=== PATIENT | male | born 1955 | race Caucasian/White ===

== ENCOUNTER → 2023-07-08 | Emergency (ER) | payer OTHER, MEDICARE ==
[~2023-07-08] MED LIST: HYDROCODONE/APAP 7.5/325 MG TAB ONE
--- NOTE | 2023-07-08 21:19 | RAD REPORT ---
EXAM DESCRIPTION: CT - CTHCSPWOC - 07/08/2023 9:02 pm CLINICAL HISTORY: Trauma, head and neck injury. TRAUMA COMPARISON: No comparisons TECHNIQUE: Axial 5 mm thick images of the head were obtained. Axial 2 mm thick images of the cervical spine were obtained with sagittal and coronal reconstruction images generated and reviewed. All CT scans are performed using dose optimization technique as appropriate and may include automated exposure control or mA/KV adjustment according to patient size. FINDINGS: CT HEAD WITHOUT CONTRAST: No acute hemorrhage, hydrocephalus or extra-axial collection is identified.No areas of brain edema or midline shift. Cerebral atrophy. Trace right maxillary sinus thickening.The calvarium is intact. CT CERVICAL SPINE WITHOUT CONTRAST: No fracture or subluxation.No prevertebral soft tissues swelling is identified. Multilevel degenerati ve changes are present in the spine. Varying degrees of neural foraminal narrowing noted most pronoun sally at the C5-6 level were the narrowing is moderate. IMPRESSION: No acute intracranial or cervical spine findings.
--- NOTE | 2023-07-08 21:52 | ER ---
Nurse's Notes [facility] Name: Anton Ceballos Age: 67 yrs Sex: Male : 1955 Arrival Date: 07/08/2023 Time: 20:10 Bed 17 Private MD: Diagnosis: Puncture wound without foreign body of scalp, initial encounter Presentation: 07/08 20:16 Chief complaint: Patient states: Pt states he fell off a chair and struck the left side tl4 of his head on concrete floor. Pt c/o head pain and dizziness. Pt denies LOC. Pt has matted bloody hair, unable to visualize laceration. Bleeding controlled. No abnormal behaviors reported by . Coronavirus screen: At this time, the client does not indicate any symptoms associated with coronavirus-19. Ebola Screen: No symptoms or risks identified at this time. Complicating Factors: There are no complicating factors for this patient. Initial Sepsis Screen: Does the patient meet any 2 criteria? No. Patient's initial sepsis screen is negative. Does the patient have a suspected source of infection? No. Patient's initial sepsis screen is negative. Risk Assessment: Do you want to hurt yourself or someone else? Patient reports no desire to harm self or others. Onset of symptoms was July 08, 2023 at 20:00. 20:16 Method Of Arrival: Wheelchair tl4 20:16 Acuity: JOAN 3 tl4 Triage Assessment: 20:20 General: Appears distressed, uncomfortable, Behavior is crying. Pain: Complains of pain tl4 in left side of head. EENT: No deficits noted. No signs and/or symptoms were reported regarding the EENT system. Neuro: Reports dizziness, headache. Cardiovascular: No deficits noted. Denies chest pain, diaphoresis, lightheadedness, palpitations. Respiratory: No deficits noted. Denies cough, shortness of breath. GI: No deficits noted. No signs and/or symptoms were reported involving the gastrointestinal system. : No deficits noted. No signs and/or symptoms were reported regarding the genitourinary system. Derm: No deficits noted. No signs and/or symptoms reported regarding the dermatologic system. Injury Description: Laceration sustained to left side of head. Historical: - Allergies: 20:23 No Known Allergies; tl4 - Home Meds: 20:23 tramadol 50 mg Oral tablet [Active]; levocetirizine oral [Active]; Valacyclovir Oral tl4 [Active]; gabapentin 300 mg oral capsule 1 cap 2 times per day [Active]; famotidine 40 mg Oral tablet 1 tab daily [Active]; rosuvastatin 20 mg oral tablet 1 tab daily [Active]; lisinopril-hydrochlorothiazide 20-25 mg oral tablet 1 tab daily [Active]; - PMHx: 20:23 Hypertensive disorder; tl4 - Immunization history:: Adult Immunizations unknown, Last tetanus immunization: up to date 2021. - Social history:: Smoking status: Patient denies any tobacco usage or history of. Screenin:40 [facility] ED Fall Risk Assessment (Adult) History of falling in the last 3 months, vc1 including since admission Yes- single mechanical fall (1 pt) Confusion or Disorientation No (0 pts) Intoxicated or Sedated No (0 pts) Impaired Gait No (0 pts) Mobility Assist Device Used No (0 pt) Altered Elimination No (0 pt) Score/Fall Risk Level 3 or more points = High Risk Oriented to surroundings, Maintained a safe environment, Educated pt \T\ family on fall prevention, incl call for assistance when getting out of bed. Abuse screen: Denies threats or abuse. Nutritional screening: No deficits noted. Tuberculosis screening: No symptoms or risk factors identified. Vital Signs: 20:16 BP 142 / 102; Pulse 75; Resp 16; Temp 97.1(TE); Pulse Ox 97% on R/A; Weight 88.45 kg; tl4 Height 5 ft. 6 in. ; Pain 8/10; 20:16 Body Mass Index 31.47 (88.45 kg, 167.64 cm) tl4 20:16 Pain Scale: Adult tl4 ED Course: 20:16 Patient arrived in ED. tl4 20:16 Mavis Kinney PA-C is PHCP. sb4 20:16 Soto Haddad MD is Attending Physician. sb4 20:20 Triage completed. tl4 20:20 Arm band placed on right wrist. tl4 21:00 Head C Spine MPR Wo Con CT In Process Unspecified. EDMS 22:41 No provider procedures requiring assistance completed. IV discontinued, intact, vc1 bleeding controlled, No redness/swelling at site. Pressure dressing applied. Administered Medications: 21:28 Drug: Hydrocodone-Acetaminophen PO (7.5 mg-325 mg) 1 tabs PO once Route: PO; vc1 Medication: 22:42 VIS not applicable for this client. vc1 Outcome: :52 Discharge ordered by . sb4 :42 Discharged to home via wheelchair, vc1 :42 Condition: good :42 Discharge instructions given to patient, Instructed on discharge instructions, follow up and referral plans. medication usage, Demonstrated understanding of instructions, follow-up care, medications, Prescriptions given X 1, :45 Patient left the ED. vc1 Signatures: Dispatcher [employer] EDMS Italia Adkins RN RN vc1 Mavis Kinney PA-C PABay [email or web address] Harjinder Hansen RN RN tl4
--- NOTE | 2023-07-08 21:52 | EDPHYS ---
Physician Documentation [facility] Name: Anton Ceballos Age: 67 yrs Sex: Male : 1955 Arrival Date: 07/08/2023 Time: 20:10 Bed 17 Private MD: ED Physician Soto Haddad HPI: 07/08 20:43 This 67 yrs old Male presents to ER via Wheelchair with complaints of Laceration. sb4 20:43 The patient has a laceration occurred at home, and there are no complicating factors. sb4 The injury was accidental. The laceration(s) is(are) located on the left side of the back of head. Onset: The symptoms/episode began/occurred just prior to arrival. Associated signs and symptoms: Pertinent positives: dizziness, Pertinent negatives: deformity, heavy bleeding, loss of consciousness. The patient has not experienced similar symptoms in the past. The patient has not recently seen a physician. fell off of a chair reaching for a box, no loc, no blood thinners. Historical: - Allergies: 20:23 No Known Allergies; tl4 - Home Meds: 20:23 tramadol 50 mg Oral tablet [Active]; levocetirizine oral [Active]; Valacyclovir Oral tl4 [Active]; gabapentin 300 mg oral capsule 1 cap 2 times per day [Active]; famotidine 40 mg Oral tablet 1 tab daily [Active]; rosuvastatin 20 mg oral tablet 1 tab daily [Active]; lisinopril-hydrochlorothiazide 20-25 mg oral tablet 1 tab daily [Active]; - PMHx: 20:23 Hypertensive disorder; tl4 - Immunization history:: Adult Immunizations unknown, Last tetanus immunization: up to date 2021. - Social history:: Smoking status: Patient denies any tobacco usage or history of. ROS: 20:43 Constitutional: Negative for fever, chills, and weight loss, sb4 20:43 Skin: Positive for laceration(s), of the left side of the back of head, 20:43 Neuro: Positive for dizziness, headache, 20:43 All other systems are negative, Exam: 21:50 Constitutional: This is a well developed, well nourished patient who is awake, alert, sb4 and in no acute distress. Head/Face: Normocephalic, atraumatic. Eyes: Extra-ocular motions intact. Periorbital areas with no swelling, redness, or edema. ENT: Mucous membranes moist. Cardiovascular: Regular rate and rhythm with a normal S1 and S2. Respiratory: Lungs have equal breath sounds bilaterally, clear to auscultation and percussion. No rales, rhonchi or wheezes noted. No increased work of breathing, no retractions or nasal flaring. Abdomen/GI: Soft, non-tender, no distension. MS/ Extremity: Pulses equal, no cyanosis. Neurovascular intact. Full, normal range of motion. Neuro: Awake and alert, GCS 15, oriented to person, place, time, and situation. Motor strength 5/5 in all extremities. Sensory grossly intact. 21:50 Skin: injury, puncture(s), that are superficial, of the left side of the back of head, Vital Signs: 20:16 BP 142 / 102; Pulse 75; Resp 16; Temp 97.1(TE); Pulse Ox 97% on R/A; Weight 88.45 kg; tl4 Height 5 ft. 6 in. ; Pain 8/10; 20:16 Body Mass Index 31.47 (88.45 kg, 167.64 cm) tl4 20:16 Pain Scale: Adult tl4 MDM: 20:33 Patient medically screened. sb4 21:50 Differential diagnosis: superficial laceration, hematoma, closed head injury. Data sb4 reviewed: vital signs, nurses notes, radiologic studies, and as a result, I will discharge patient. Historians other than the Patient: Spouse/Significant Other: . Counseling: I had a detailed discussion with the patient and/or guardian regarding the historical points, exam findings, and any diagnostic results supporting the discharge/admit diagnosis, radiology results, to return to the emergency department if symptoms worsen or persist or if there are any questions or concerns that arise at home. 07/08 20:42 Order name: Head C Spine MPR Wo Con CT; Complete Time: 21:20 sb4 Administered Medications: 21:28 Drug: Hydrocodone-Acetaminophen PO (7.5 mg-325 mg) 1 tabs PO once Route: PO; vc1 Disposition: 07/09 20:53 Co-signature as Attending Physician, Soto Haddad MD I agree with the assessment sp4 and plan of care. I reviewed the patient's care provided by the Advanced Practice Provider and agree with the diagnosis and treatment plan. Disposition Summary: 07/08/23 21:52 Discharge Ordered Notes: Location: Home sb4 Problem: new sb4 Symptoms: have improved sb4 Condition: Stable sb4 Diagnosis - Puncture wound without foreign body of scalp, initial encounter sb4 Followup: sb4 - With: Emergency Department - When: As needed - Reason: Trouble breathing, Worsening of condition Discharge Instructions: - Discharge Summary Sheet sb4 - Puncture Wound, [id number] sb4 - Facial or Scalp Contusion, [id number] sb4 Forms: - Medication Reconciliation Form sb4 - Thank You Letter sb4 - Prescription Opioid Use sb4 - Patient Portal Instructions sb4 - Leadership Thank You Letter sb4 Prescriptions: - Tramadol 50 mg Oral Tablet - take 1 tablet ORAL route every 8 hours as needed; 12 tablet; Refills: 0, sb4 Product Selection Permitted Signatures: Dispatcher [employer] Italia Alfaro RN RN vc1 Mavis Kinney, ANNITA ARIZA sb4 Soto Haddad MD MD sp4 Harjinder Hansen RN RN tl4
[2023-07-08 22:53] VITALS: BP 142/102; TEMP 97.1; O2SAT 97
== END ==
LOC: ER 20:10
DX: S01.03XA Puncture wound without foreign body of scalp, initial encounter (principal); I10 Essential (primary) hypertension; W07.XXXA Fall from chair, initial encounter
CPT/HCPCS: 70450; 72125; 99283

== ENCOUNTER 2024-01-23 08:46 | Emergency (ER) | payer BC, OTHER, MEDICARE ==
--- NOTE | 2024-01-23 09:24 | ER ---
Nurse's Notes [facility] Name: Anton Ceballos Age: 68 yrs Sex: Male : 1955 Arrival Date: 01/23/2024 Time: 08:46 Bed 3 Private MD: Diagnosis: Dental pain;Periapical abscess Presentation: 01/22 09:09 Chief complaint: Patient states: R jaw tooth pain since Sunday, worse today. No fever. ll1 Coronavirus screen: Client denies travel out of the [place] in the last 14 days. At this time, the client does not indicate any symptoms associated with coronavirus-19. Ebola Screen: Patient denies travel to an Ebola-affected area in the 21 days before illness onset. Initial Sepsis Screen: Does the patient meet any 2 criteria? No. Patient's initial sepsis screen is negative. Does the patient have a suspected source of infection? No. Patient's initial sepsis screen is negative. Risk Assessment: Do you want to hurt yourself or someone else? Patient reports no desire to harm self or others. Onset of symptoms was January 20, 2024. 09:09 Method Of Arrival: Wheelchair ll1 09:09 Acuity: JOAN 3 ll1 Historical: - Allergies: 09:08 No Known Allergies; ll1 - PMHx: 08:58 Hypertensive disorder; dd2 - PSHx: 09:08 Cholecystectomy; ll1 - Immunization history:: Adult Immunizations up to date. - Infectious Disease History:: Denies. - Social history:: Smoking status: unknown. Screenin:35 [facility] ED Fall Risk Assessment (Adult) History of falling in the last 3 months, ph including since admission No falls in past 3 months (0 pts) Confusion or Disorientation No (0 pts) Intoxicated or Sedated No (0 pts) Impaired Gait No (0 pts) Mobility Assist Device Used No (0 pt) Altered Elimination No (0 pt) Score/Fall Risk Level 0 - 2 = Low Risk Oriented to surroundings, Maintained a safe environment, Hourly rounding (assess needs \T\ fall precautionary measures) done. Abuse screen: Denies threats or abuse. Denies injuries from another. Nutritional screening: No deficits noted. Tuberculosis screening: No symptoms or risk factors identified. Assessment: 09:36 General: Appears in no apparent distress. Behavior is calm, cooperative, Reports chills ph for. Pain: Complains of pain in mouth, R upper jaw. Cardiovascular: No deficits noted. Respiratory: Airway is patent Respiratory effort is even, unlabored. EENT: Reports pain in right jaw. Derm: Skin is pink, warm \T\ dry. Vital Signs: 09:09 BP 157 / 102; Pulse 95; Resp 18; Temp 97.9; Pulse Ox 100% on R/A; Weight 77.11 kg; ll1 Height 5 ft. 6 in. ; Pain 10; 09:09 Body Mass Index 27.44 (77.11 kg, 167.64 cm) ll1 09:09 Pain Scale: Adult ll1 ED Course: 08:49 Patient arrived in ED. mg5 08:58 Arm band placed on Patient placed in an exam room, on a stretcher. dd2 09:00 Roxanne Gomes RN is Primary Nurse. ph 09:08 Milagro Benitez MD is Attending Physician. sd2 09:10 Triage completed. ll1 09:36 Patient has correct armband on for positive identification. Bed in low position. Call ph light in reach. Side rails up X 1. Pulse ox on. NIBP on. Door closed. Noise minimized. 09:37 No provider procedures requiring assistance completed. Patient did not have IV access ph during this emergency room visit. Administered Medications: 09:33 Drug: Clindamycin PO 300 mg PO once Route: PO; ph 09:38 Follow up: Response: No adverse reaction; Medication administered at discharge. ph 09:34 Drug: Hydrocodone-Acetaminophen PO (7.5 mg-325 mg) 1 tabs PO once Route: PO; ph 09:38 Follow up: Response: No adverse reaction; Medication administered at discharge. ph Medication: 09:35 VIS not applicable for this client. ph Outcome: 09:24 Discharge ordered by . sd2 09:37 Discharged to home ambulatory, with significant other, ph 09:37 Condition: good 09:37 Discharge instructions given to patient, Instructed on discharge instructions, follow up and referral plans. medication usage, Demonstrated understanding of instructions, follow-up care, medications, Prescriptions given X 1, 09:38 Patient left the ED. ph Signatures: Roxanne Gomes RN RN ph Irnee Javier RN RN 1 Milagro Benitez MD MD sd2 Ilda Carmichael mg5 GLADYS IQBAL, RN RN dd2
--- NOTE | 2024-01-23 09:25 | EDPHYS ---
Physician Documentation [facility] Name: Anton Ceballos Age: 68 yrs Sex: Male : 1955 Arrival Date: 01/23/2024 Time: 08:46 Bed 3 Private MD: ED Physician Milagro Benitez HPI: 01/22 09:19 This 68 yrs old Male presents to ER via Wheelchair with complaints of Toothache. sd2 09:19 The patient presents with pain, swelling. The problem is located in the face. Onset: sd2 The symptoms/episode began/occurred Sunday. Duration: The symptoms are continuous. Modifying factors: The symptoms are alleviated by the symptoms are aggravated by. 68-year-old male presents with chief complaint of right upper molar tooth pain that started this past Sunday. He reports that he has noticed swelling to the area with some possible drainage and he believes that an abscess may have opened up. He has never had any prior issues with the tooth. He denies any fever, vomiting or other systemic symptoms. He reports he had a appointment scheduled with a dentist at [facility] this morning but he called and canceled it and came to the ER instead.. Historical: - Allergies: 09:08 No Known Allergies; ll1 - PMHx: 08:58 Hypertensive disorder; dd2 - PSHx: 09:08 Cholecystectomy; ll1 - Immunization history:: Adult Immunizations up to date. - Infectious Disease History:: Denies. - Social history:: Smoking status: unknown. ROS: 09:19 Constitutional: Negative for fever, chills, and weight loss, Eyes: Negative for injury, sd2 pain, redness, and discharge, ENT: Positive for pain and discharge. Negative for injury. Cardiovascular: Negative for chest pain, palpitations, and edema, Respiratory: Negative for shortness of breath, cough, wheezing. Abdomen/GI: Negative for abdominal pain, nausea, vomiting, diarrhea. Skin: Negative for injury, rash, and discoloration, Exam: 09:19 Constitutional: This is a well developed, well nourished patient who is awake, alert, sd2 and in no acute distress. Head/Face: Normocephalic, atraumatic. Eyes: EOMI, normal conjunctiva bilaterally ENT: Nares patent. No nasal discharge, no septal abnormalities noted. Tympanic membranes are normal and external auditory canals are clear. Oropharynx with no redness, swelling, or masses, exudates, or evidence of obstruction, uvula midline. Mucous membranes moist. Right upper most posterior molar with poor dentition. No visible abscess. Tenderness to palpation of the gumline around this area as well as percussion tenderness of the tooth itself. Vital Signs: 09:09 BP 157 / 102; Pulse 95; Resp 18; Temp 97.9; Pulse Ox 100% on R/A; Weight 77.11 kg; ll1 Height 5 ft. 6 in. ; Pain 10; 09:09 Body Mass Index 27.44 (77.11 kg, 167.64 cm) ll1 09:09 Pain Scale: Adult ll1 MDM: 09:08 Patient medically screened. sd2 09:19 Differential diagnosis: dental caries, gingivitis, dental abscess, pericoronitis, sd2 aphthous ulcers, acute necrotizing ulcerative gingivitis, gingivostomatitis, among others. Data reviewed: vital signs, nurses notes. I considered the following discharge prescriptions or medication management in the emergency department Medications were administered in the Emergency Department. See MAR. Historians other than the Patient: Spouse/Significant Other: Provides further history. Care significantly affected by the following chronic conditions: Hypertension. Counseling: I had a detailed discussion with the patient and/or guardian regarding the historical points, exam findings, and any diagnostic results supporting the discharge/admit diagnosis, the need for outpatient follow up, to return to the emergency department if symptoms worsen or persist or if there are any questions or concerns that arise at home. ED course: [place] given for pain control as well as clindamycin to start antibiotic coverage. We did call the patient's dentist while he was in the ER and they were no longer able to get him in for his morning appointment. They state that he would likely need an initial assessment and then to be on antibiotics for 1 week before they would pull the tooth. They will reschedule the appointment for him pending confirmation of his dental coverage.. Administered Medications: 09:33 Drug: Clindamycin PO 300 mg PO once Route: PO; ph 09:38 Follow up: Response: No adverse reaction; Medication administered at discharge. ph 09:34 Drug: Hydrocodone-Acetaminophen PO (7.5 mg-325 mg) 1 tabs PO once Route: PO; ph 09:38 Follow up: Response: No adverse reaction; Medication administered at discharge. ph Disposition Summary: 01/23/24 09:24 Discharge Ordered Problem: new sd2 Symptoms: have improved sd2 Condition: Stable sd2 Diagnosis - Dental pain sd2 - Periapical abscess sd2 Followup: sd2 - With: Private Physician - When: 2 - 3 days - Reason: Recheck today's complaints, Continuance of care, Re-evaluation by your physician Discharge Instructions: - Discharge Summary Sheet sd2 - Dental Abscess sd2 - Dental Pain sd2 Forms: - Medication Reconciliation Form sd2 - Antibiotic Education sd2 - Prescription Opioid Use sd2 - Patient Portal Instructions sd2 - Leadership Thank You Letter sd2 Prescriptions: - Clindamycin HCl 300 mg Oral Capsule - take 1 capsule ORAL route every 6 hours for 10 days; 40 capsule; Refills: 0, sd2 Product Selection Permitted Signatures: Roxanne Gomes RN RN Irene Javier RN RN ll1 Milagro Benitez MD MD sd2 GLADYS IQBAL RN RN dd2
[2024-01-23] MEDS ORDERED: HYDROCODONE/APAP 7.5/325 MG TAB ONE (09:29)
[2024-01-23 09:48] VITALS: BP 157/102; TEMP 97.9; O2SAT 100
== END 2024-01-23 09:38 | disposition home or self-care (01) ==
LOC: ER 08:46
DX: K04.7 Periapical abscess without sinus (principal)
CPT/HCPCS: 99283